=== PATIENT | female | born 1975 | race Caucasian/White ===

== ENCOUNTER → 2024-01-11 | Outpatient (REF) | payer OTHER ==
[2024-01-14 10:02] LABS: HEPATITIS B SURF AB QUANT 7 mIU/mL (> OR = 10)
[2024-01-14 11:02] LABS: HEPATITIS A IgG TOTAL REACTIVE (NON-REACTIVE)
[2024-01-15 23:02] LABS: ANTI TETANUS ANTIBODY 1.13 IU/mL (>=0.10)
[2024-01-16 16:16] LABS: INFLUENZA A VIRUS TITER 1:16 titer (<1:8); INFLUENZA B VIRUS TITER <1:8 titer (<1:8)
[2024-01-20 14:37] LABS: PNEUMOCOCCAL AB TYPE 1 0.2 mcg/mL (>=1.0); PNEUMOCOCCAL AB TYPE 12 0.1 mcg/mL (>=1.0); PNEUMOCOCCAL AB TYPE 14 0.4 mcg/mL (>=1.0); PNEUMOCOCCAL AB TYPE 17 1.3 mcg/mL (>=1.0); PNEUMOCOCCAL AB TYPE 19 0.8 mcg/mL (>=1.0); PNEUMOCOCCAL AB TYPE 2 0.2 mcg/mL (>=1.0); PNEUMOCOCCAL AB TYPE 20 1.1 mcg/mL (>=1.0); PNEUMOCOCCAL AB TYPE 22 0.6 mcg/mL (>=1.0); PNEUMOCOCCAL AB TYPE 23 0.2 mcg/mL (>=1.0); PNEUMOCOCCAL AB TYPE 26 0.3 mcg/mL (>=1.0); PNEUMOCOCCAL AB TYPE 3 0.1 mcg/mL (>=1.0); PNEUMOCOCCAL AB TYPE 34 0.7 mcg/mL (>=1.0); PNEUMOCOCCAL AB TYPE 4 0.1 mcg/mL (>=1.0); PNEUMOCOCCAL AB TYPE 43 0.1 mcg/mL (>=1.0); PNEUMOCOCCAL AB TYPE 5 0.1 mcg/mL (>=1.0); PNEUMOCOCCAL AB TYPE 51 0.3 mcg/mL (>=1.0); PNEUMOCOCCAL AB TYPE 54 0.7 mcg/mL (>=1.0); PNEUMOCOCCAL AB TYPE 56 0.3 mcg/mL (>=1.0); PNEUMOCOCCAL AB TYPE 57 0.7 mcg/mL (>=1.0); PNEUMOCOCCAL AB TYPE 68 0.1 mcg/mL (>=1.0); PNEUMOCOCCAL AB TYPE 70 4.3 mcg/mL (>=1.0); PNEUMOCOCCAL AB TYPE 9 0.2 mcg/mL (>=1.0)
[2024-01-22 18:10] LABS: BORDETELLA PERTUSSIS ABY IgA <1.0 index (0.0-0.9); BORDETELLA PERTUSSIS ABY IgG 2.07 index (0.00-0.94); BORDETELLA PERTUSSIS ABY IgM <1.0 index (0.0-0.9); DIPTHERIA ANTIBODY TITER 0.17 IU/mL (<0.10)
== END ==
LOC: M LAB REF 22:10
PROVIDERS: ATTEND Physician Assistant
DX: Z02.89 Encounter for other administrative examinations (principal)

== ENCOUNTER → 2024-01-22 | Outpatient (CLI) | payer OTHER | LOC: M LAB 13:22 | PROVIDERS: ATTEND Physician Assistant Medical | DX: U07.1 COVID-19 (principal) ==

== ENCOUNTER → 2024-07-28 | Outpatient (CLI) | payer OTHER | LOC: M RAD 13:39 | PROVIDERS: ATTEND Student in an Organized Health Care Education/Training Program | DX: S62.623A Displaced fracture of middle phalanx of left middle finger, initial encounter for closed fracture (principal); Y93.9 Activity, unspecified; Y92.9 Unspecified place or not applicable ==